=== PATIENT | female | born 1970 | race Hispanic/Latino ===

== ENCOUNTER 2017-01-24 08:39 | Emergency (ER) | payer MEDICAID ==
[2017-01-24 08:46] VITALS: BP 154/86; PULSE 77; TEMP 97; O2SAT 98
[2017-01-24 08:47] VITALS: BMI 33.2
--- NOTE | 2017-01-24 09:00 | ED PDOC ---
HPI: General Adult Time Seen by Provider: 01/24/17 08:57 Chief Complaint (Provider): rule out lice History Per: Patient History/Exam Limitations: no limitations Additional Complaint(s): 46yo female comes to the ED to rule out lice. Patient states she found lice in her daughter's hair and has been treating it with shampoo. Daughter was cleared to return to school by the school RN however now mom feels her head is itchy. No other complaints. 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 Past Medical History Reviewed: Historical Data, Nursing Documentation, Vital Signs Vital Signs: Last Vital Signs Temp 97 F L 01/24/17 08:46 Pulse 77 01/24/17 08:46 Resp BP 154/86 H 01/24/17 08:46 Pulse Ox 98 01/24/17 09:08 - Medical History PMH: Arthritis, Asthma, HTN (self controlled) - Family History Family History: States: CAD, Diabetes - Living Arrangements Living Arrangements: With Family - Social History Drugs: Denies - Home Medications Home Medications: Ambulatory Orders Medication Instructions Recorded Pip Butox/Pyrethrins/Permeth [Rid 1 each TOP ONCE #1 kit 01/24/17 Complete Lice Kit] - Allergies Allergies/Adverse Reactions: Allergies Allergy/AdvReac Type Severity Reaction Status Date / Time avocado Allergy SWELLING Verified 01/24/17 09:02 tomato Allergy SWELLING Verified 01/24/17 09:02 chocolate Allergy RASH Uncoded 01/24/17 09:02 Review of Systems Skin: Positive for: Other (itching) Physical Exam - Reviewed Nursing Documentation Reviewed: Yes Vital Signs Reviewed: Yes - Physical Exam Appears: Positive for: Well, Non-toxic, No Acute Distress Head Exam: Positive for: ATRAUMATIC, NORMAL INSPECTION (+no active bugs. +areas of excoriation and dry skin on scalp. +no lice seen. +no eggs seen. ), NORMOCEPHALIC Skin: Positive for: Warm, Dry - ECG O2 Sat by Pulse Oximetry: 98 (RA) Pulse Ox Interpretation: Normal Medical Decision Making Medical Decision Makin Patient cleared to return to work. Instructed to wash all pillows, sheets and bedding with hot water and detergent. Recommend repeat shampoo treatments for patient and daughter in one week. Disposition - Clinical Impression Clinical Impression: Exposure to head lice - Disposition Disposition: Routine/Home Disposition Time: 09:08 Condition: GOOD Additional Instructions: You are cleared to return to work. There are no signs of lice or eggs in your hair. Do lice treatment due to close exposure. Follow-up with PMD within 2 days. Return to ED if condition worsens. Prescriptions: Pip Butox/Pyrethrins/Permeth [Rid Complete Lice Kit] 1 each TOP ONCE #1 kit Instructions: Head lice in Children (ED) Forms: [facility] ED School/Work Excuse Additional Comments - Additional Comments Additional Comments: Scribe Attestation: Documented by Stevenson Villar acting as a scribe for Angélica James MD. Scribe Attestation: All medical record entries made by the Scribe were at my direction and personally dictated by me. I have reviewed the chart and agree that the record accurately reflects my personal performance of the history, physical exam, medical decision making, and the department course for this patient. I have also personally directed, reviewed, and agree with the discharge instructions and disposition.
== END 2017-01-24 09:29 | disposition home or self-care (01) ==
LOC: H.ER 08:39
DX: B85.0 Pediculosis due to Pediculus humanus capitis (principal); I10 Essential (primary) hypertension

== ENCOUNTER 2017-07-07 15:28 | Emergency (ER) | payer MEDICAID ==
[2017-07-07 15:28] VITALS: BMI 33.2
[2017-07-07 15:33] VITALS: BP 152/89; PULSE 80; RESP 16; TEMP 98.6; O2SAT 99
--- NOTE | 2017-07-07 15:52 | ED PDOC ---
Lower Extremity Pain/Injury Time Seen by Provider: 07/07/17 15:35 Chief Complaint (Nursing): Hip Pain Chief Complaint (Provider): Hip Pain History Per: Patient History/Exam Limitations: no limitations Onset/Duration Of Symptoms: Hrs (prior to arrival ) Additional Complaint(s): Ayla Gomez is a 47 year old female with a past medical history of sciatica and arthritis localized to her back presenting to the ED for an evaluation of left hip pain worsening with pressure. The patient reports taking 2 tablets of Aleve every morning for her sciatica, but has not taken any today. She has taken Excedrin, for her headache, and Pamprin, for her cramps this morning. PMD: [facility] Past Medical History Reviewed: Historical Data, Nursing Documentation, Vital Signs Vital Signs: Last Vital Signs Temp 98.6 F 07/07/17 15:31 Pulse 80 07/07/17 15:31 Resp 16 07/07/17 15:31 BP 152/89 H 07/07/17 15:31 Pulse Ox 99 07/07/17 15:31 - Medical History PMH: Arthritis, Asthma, HTN (self controlled) Other PMH: sciatica - Family History Family History: States: CAD, Diabetes - Home Medications Home Medications: Ambulatory Orders Medication Instructions Recorded Pip Butox/Pyrethrins/Permeth [Rid 1 each TOP ONCE #1 kit 01/24/17 Complete Lice Kit] Cyclobenzaprine [Cyclobenzaprine 10 mg PO Q8H PRN #12 tab 07/07/17 HCl] - Allergies Allergies/Adverse Reactions: Allergies Allergy/AdvReac Type Severity Reaction Status Date / Time avocado Allergy SWELLING Verified 07/07/17 15:31 tomato Allergy SWELLING Verified 07/07/17 15:31 chocolate Allergy RASH Uncoded 07/07/17 15:31 Review of Systems ROS Statement: Except As Marked, All Systems Reviewed And Found Negative Musculoskeletal: Positive for: Leg Pain (left hip pain) Physical Exam - Reviewed Nursing Documentation Reviewed: Yes Vital Signs Reviewed: Yes - Physical Exam Appears: Positive for: Non-toxic, No Acute Distress Head Exam: Positive for: ATRAUMATIC, NORMOCEPHALIC Skin: Positive for: Normal Color Eye Exam: Positive for: Normal appearance ENT: Positive for: Normal ENT Inspection Neck: Positive for: Normal, Painless ROM Cardiovascular/Chest: Positive for: Regular Rate, Rhythm Respiratory: Positive for: CNT, Normal Breath Sounds Back: Positive for: Normal Inspection, Other (positive left straight leg raise ) Extremity: Positive for: Normal ROM. Negative for: Deformity Neurologic/Psych: Positive for: Alert, Oriented - ECG O2 Sat by Pulse Oximetry: 99 (RA) Pulse Ox Interpretation: Normal Medical Decision Making Medical Decision Making: Time: 15:35 Impression: Exacerbation of sciatica Plan: * Flexeril 10 mg PO * Tylenol 975 mg PO Medication cut in half because she did not want to take the whole thing and be "sleepy". Pt states she does not want anything that could make her drowsy because she has to take care of her children this evening and there is no one to help. Scribe Attestation: Documented by Talia Sales, acting as a scribe for Zuri Ortez PA-C. Provider Scribe Attestation: All medical record entries made by the Scribe were at my direction and personally dictated by me. I have reviewed the chart and agree that the record accurately reflects my personal performance of the history, physical exam, medical decision making, and the department course for this patient. I have also personally directed, reviewed, and agree with the discharge instructions and disposition. Disposition - Clinical Impression Clinical Impression: Sciatica - Patient ED Disposition Is Patient to be Admitted: No Counseled Patient/Family Regarding: Diagnosis, Need For Followup, Rx Given - Disposition Disposition: Routine/Home Disposition Time: 16:31 Condition: GOOD Prescriptions: Cyclobenzaprine [Cyclobenzaprine HCl] 10 mg PO Q8H PRN #12 tab PRN Reason: Muscle Spasm Instructions: Sciatica (ED) Forms: [email or web address] (Latvian)
== END 2017-07-07 16:48 | disposition home or self-care (01) ==
LOC: H.ER 15:28
DX: M54.32 Sciatica, left side (principal); I10 Essential (primary) hypertension; J45.909 Unspecified asthma, uncomplicated

== ENCOUNTER 2018-01-14 08:33 | Emergency (ER) | payer MEDICAID ==
[2018-01-14 08:34] VITALS: BMI 33.2
[2018-01-14 08:43] VITALS: BP 124/65; PULSE 98; RESP 20; TEMP 98; O2SAT 98
--- NOTE | 2018-01-14 09:50 | ED PDOC ---
HPI: CCC, URI, Sore Throat Time Seen by Provider: 01/14/18 08:58 Chief Complaint (Nursing): ENT Problem History Per: Patient History/Exam Limitations: no limitations Onset/Duration Of Symptoms: Days (2), Gradual Current Symptoms Are (Timing): Still Present Associated Symptoms: Sore Throat, Cough. denies: Fever, Chills, Sputum, Neck Pain, Myalgias, Nasal Congestion, Nausea, Vomiting, Diarrhea Ear Symptoms: Right: Ear Pain Severity: Mild Additional History Per: Patient Additional Complaint(s): pt. into ER c/o lt. ear pain and throat pain since yesterday. states pain is worse when swallowing. denies any drainage from ear, denies any fever. pt. also c/o lt. arm pain since . denies any injury or trauma. states she took aleve with no relief, no cp or sob, does repetitive motion as a beverage server. Past Medical History Reviewed: Historical Data, Nursing Documentation, Vital Signs Vital Signs: Last Vital Signs Temp 98.0 F 01/14/18 08:39 Pulse 98 H 01/14/18 08:39 Resp 20 01/14/18 08:39 BP 124/65 01/14/18 08:39 Pulse Ox 98 01/14/18 09:51 - Medical History PMH: Arthritis, Asthma, HTN (self controlled) - Family History Family History: States: CAD, Diabetes - Living Arrangements Living Arrangements: With Family - Social History Current smoker - smoking cessation education provided: No - Home Medications Home Medications: Ambulatory Orders Medication Instructions Recorded Pip Butox/Pyrethrins/Permeth [Rid 1 each TOP ONCE #1 kit 01/24/17 Complete Lice Kit] Cyclobenzaprine [Cyclobenzaprine 10 mg PO Q8H PRN #12 tab 07/07/17 HCl] Azithromycin [Z-Joel] 250 mg PO DAILY #6 tab 01/14/18 Naproxen 500 mg PO BID PRN #20 tablet 01/14/18 - Allergies Allergies/Adverse Reactions: Allergies Allergy/AdvReac Type Severity Reaction Status Date / Time avocado Allergy SWELLING Verified 01/14/18 08:39 tomato Allergy SWELLING Verified 01/14/18 08:39 chocolate Allergy RASH Uncoded 07/07/17 15:31 Review of Systems ROS Statement: Except As Marked, All Systems Reviewed And Found Negative Constitutional: Negative for: Fever, Chills Eyes: Negative for: Vision Change ENT: Positive for: Ear Pain (left), Throat Pain. Negative for: Nose Pain, Nose Discharge, Mouth Swelling, Throat Swelling Cardiovascular: Negative for: Chest Pain, Palpitations Respiratory: Negative for: Cough, Shortness of Breath Gastrointestinal: Negative for: Nausea, Vomiting, Abdominal Pain Musculoskeletal: Negative for: Neck Pain Neurological: Negative for: Weakness, Numbness Physical Exam - Reviewed Nursing Documentation Reviewed: Yes Vital Signs Reviewed: Yes - Physical Exam Appears: Positive for: Well Head Exam: Positive for: ATRAUMATIC, NORMAL INSPECTION, NORMOCEPHALIC Eye Exam: Positive for: Normal appearance, EOMI, PERRL ENT: Positive for: Pharynx Is (clear,mmm), TM Is/Are (nml bl), Pharyngeal Erythema. Negative for: Tonsillar Exudate, Tonsillar Swelling Neck: Positive for: Normal, Painless ROM, Supple. Negative for: Decreased ROM, Limited ROM, Trachea Midline Cardiovascular/Chest: Positive for: Regular Rate, Rhythm, Chest Non Tender. Negative for: Edema, Gallop, Murmur, Bradycardia, Tachycardia Respiratory: Positive for: Normal Breath Sounds. Negative for: Decreased Breath Sounds, Accessory Muscle Use, Crackles, Rales, Rhonchi, Stridor, Wheezing , Respiratory Distress Pulses-Radial (L): 2+ Pulses-Radial (R): 2+ Gastrointestinal/Abdominal: Positive for: Normal Exam, Bowel Sounds, Soft. Negative for: Tenderness Back: Positive for: Normal Inspection. Negative for: L CVA Tenderness, R CVA Tenderness Extremity: Positive for: Normal ROM. Negative for: Tenderness, Pedal Edema Neurologic/Psych: Positive for: Alert, note taker II-XII, Oriented. Negative for: Motor/Sensory Deficits - Laboratory Results Result Diagrams: 01/14/18 10:20 01/14/18 10:20 - ECG ECG: Positive for: Interpreted By Vt ECG Rhythm: Positive for: Normal QRS, Normal ST Segment, Sinus Rhythm (81). Negative for: ST/T Changes Interpretation Of Abn EKG: no evidence of ischemia O2 Sat by Pulse Oximetry: 98 Pulse Ox Interpretation: Normal - Radiology X-Ray: Interpreted by Vt X-Ray Interpretation: No Acute Disease - Other Rad No standard instances X-Ray: Interpreted by Vt X-Ray Interpretation: L shoulder xray no fx or dislocation no sts - Progress ED Course And Treament: advise zpack and naproxen for pain. all of pt's questions were answered and pt agree's with plan. Re-evaluation Time: 11:23 Condition: Improved Disposition - Clinical Impression Clinical Impression: Pharyngitis, Shoulder injury - Patient ED Disposition Is Patient to be Admitted: No Counseled Patient/Family Regarding: Studies Performed, Diagnosis, Need For Followup, Rx Given - Disposition Referrals: [facility] [Outside] (2 to 3 days) Disposition: Routine/Home Disposition Time: 11:00 Condition: GOOD Prescriptions: Azithromycin [Z-Ojel] 250 mg PO DAILY #6 tab Naproxen 500 mg PO BID PRN #20 tablet PRN Reason: Pain, Mild (1-3) Instructions: Sore Throat, Adult (DC), Shoulder Sprain Forms: [employer] ([place] Islander), [facility] ED School/Work Excuse
[2018-01-14 10:55] LABS: BASO # 0.1 K/uL (0.0-0.2); EOS # 0.5 K/uL (0.0-0.7); EOS % 5.5 % (0.0-4.0); HEMOGLOBIN 12.3 g/dL (12.0-16.0); LYMPH # 1.9 K/uL (1.0-4.3); LYMPH % 21.6 % (20.0-40.0); MEAN CELL VOLUME 83.4 fl (81.0-99.0); MEAN CORPUSCULAR HEMOGLOBIN 27.9 pg (27.0-31.0); MEAN CORPUSCULAR HGB CONC 33.4 g/dL (33.0-37.0); MONO # 0.8 K/uL (0.0-0.8); MONO % 9.1 % (0.0-10.0); NEUT # 5.4 K/uL (1.8-7.0); NEUT % 62.8 % (50.0-75.0); RBC 4.4 Mil/uL (3.80-5.20); RED CELL DISTRIBUTION WIDTH 14.8 % (11.5-14.5); WHITE BLOOD COUNT 8.6 K/uL (4.8-10.8)
[2018-01-14 10:58] LABS: BLOOD UREA NITROGEN 12 mg/dl (7-17); CALCIUM 9.6 mg/dL (8.4-10.2); GFR AFRICAN-AMERICAN > 60; GFR NON-AFRICAN AMERICAN > 60
--- NOTE | 2018-01-14 11:37 | RAD ---
HISTORY: COMPARISON: 07/08/2012 TECHNIQUE: Chest PA and lateral FINDINGS: LINES AND TUBES: None. LUNG AND PLEURA: The lungs are well inflated and clear. HEART AND MEDIASTINUM: The heart is not enlarged. The hilar and mediastinal contours are within normal limits. SKELETAL STRUCTURES: The bony structures are within normal limits for the patient's age. VISUALIZED UPPER ABDOMEN: Normal. OTHER FINDINGS: None. IMPRESSION: No active pulmonary disease.
--- NOTE | 2018-01-14 11:39 | RAD ---
PROCEDURE: Radiographs of the Left Shoulder HISTORY: Pain COMPARISON: 07/30/2012. FINDINGS: BONES: Bone alignment and mineralization are normal. There is no acute displaced fracture or bone destruction. JOINTS: Normal. Glenohumeral and acromioclavicular joints preserved. SOFT TISSUES: Normal. OTHER FINDINGS: None. IMPRESSION: No acute fracture or dislocation.
--- NOTE | 2018-01-15 11:36 | CARD ---
APPROVED REPORT EKG Measurement Heart [id number] MI [id number] <Conclusion> Normal sinus rhythm Normal ECG
== END 2018-01-14 12:06 | disposition home or self-care (01) ==
LOC: H.ER 08:33
DX: J02.9 Acute pharyngitis, unspecified (principal); M25.512 Pain in left shoulder; I10 Essential (primary) hypertension; J45.909 Unspecified asthma, uncomplicated; Z82.49 Family history of ischemic heart disease and other diseases of the circulatory system

== ENCOUNTER 2018-05-12 18:42 | Emergency (ER) | payer MEDICAID ==
[2018-05-12 18:42] VITALS: BMI 33.2
[2018-05-12 18:52] VITALS: PULSE 75
--- NOTE | 2018-05-12 19:34 | ED PDOC ---
Lower Extremity Pain/Injury Time Seen by Provider: 05/12/18 19:28 Chief Complaint (Nursing): Lower Extremity Problem/Injury Chief Complaint (Provider): Lower Extremity Problem/Injury History Per: Patient History/Exam Limitations: no limitations Onset/Duration Of Symptoms: Days (x3) Current Symptoms Are (Timing): Still Present Additional Complaint(s): 47 y/o female presents to the ED complaining of right leg pain, onset three days ago. Patient states pain radiates from the groin shooting down the left leg. Patient reports a history of back pain in the past. Patient has intermittently taken 2 tablets of Aleve for symptom relief. Patient reports of taking flexeril in the past but states it makes her sleepy and does not want to take any sedating medications while she is taking care of her kids. PMD: [facility] Past Medical History Reviewed: Historical Data, Nursing Documentation, Vital Signs Vital Signs: Last Vital Signs Temp 98.1 F 05/12/18 18:47 Pulse 75 05/12/18 18:47 Resp 18 05/12/18 18:47 BP Pulse Ox 100 05/12/18 18:47 - Medical History PMH: Arthritis, Asthma, HTN (self controlled) - Surgical History Surgical History: No Surg Hx - Family History Family History: States: CAD, Diabetes - Home Medications Home Medications: Ambulatory Orders Medication Instructions Recorded Pip Butox/Pyrethrins/Permeth [Rid 1 each TOP ONCE #1 kit 01/24/17 Complete Lice Kit] Cyclobenzaprine [Cyclobenzaprine 10 mg PO Q8H PRN #12 tab 07/07/17 HCl] Azithromycin [Z-Joel] 250 mg PO DAILY #6 tab 01/14/18 Naproxen 500 mg PO BID PRN #20 tablet 01/14/18 Acetaminophen [Acetaminophen Extra 2 tab PO Q6 PRN #24 tablet 05/12/18 Strength] Naproxen 375 mg PO Q8 PRN #21 tablet 05/12/18 - Allergies Allergies/Adverse Reactions: Allergies Allergy/AdvReac Type Severity Reaction Status Date / Time avocado Allergy SWELLING Verified 01/14/18 08:39 tomato Allergy SWELLING Verified 01/14/18 08:39 chocolate Allergy RASH Uncoded 07/07/17 15:31 Review of Systems ROS Statement: Except As Marked, All Systems Reviewed And Found Negative Musculoskeletal: Positive for: Leg Pain (right) Physical Exam - Reviewed Nursing Documentation Reviewed: Yes - Physical Exam Appears: Positive for: Non-toxic, No Acute Distress Head Exam: Positive for: ATRAUMATIC, NORMAL INSPECTION Skin: Positive for: Normal Color, Warm Eye Exam: Positive for: Normal appearance ENT: Positive for: Normal ENT Inspection Neck: Positive for: Normal, Painless ROM Cardiovascular/Chest: Negative for: Bradycardia, Tachycardia Respiratory: Negative for: Accessory Muscle Use, Respiratory Distress Back: Positive for: Normal Inspection, Other (Mild paralumbar and right gluteal tenderness. ) Extremity: Positive for: Normal ROM, Other (No sciatica raise). Negative for: Deformity Neurologic/Psych: Positive for: Alert, Oriented. Negative for: Motor/Sensory Deficits - ECG O2 Sat by Pulse Oximetry: 100 (RA) Pulse Ox Interpretation: Normal Medical Decision Making Medical Decision Making: Time: 1927 Plan: -- Toradol 30 mg IM Scribe Attestation: Documented by Ta Carver, acting as a scribe for Donna Back PA-C. Provider Scribe Attestation: All medical record entries made by the Scribe were at my direction and personally dictated by me. I have reviewed the chart and agree that the record accurately reflects my personal performance of the history, physical exam, medical decision making, and the department course for this patient. I have also personally directed, reviewed, and agree with the discharge instructions and disposition. Disposition - Clinical Impression Clinical Impression: Sciatica - Patient ED Disposition Is Patient to be Admitted: No - Disposition Referrals: [facility] [Outside] Disposition: Routine/Home Disposition Time: 20:00 Condition: IMPROVED Prescriptions: Acetaminophen [Acetaminophen Extra Strength] 2 tab PO Q6 PRN #24 tablet PRN Reason: Pain, Moderate (4-7) Naproxen 375 mg PO Q8 PRN #21 tablet PRN Reason: Pain, Moderate (4-7) Instructions: Sciatica (DC) Forms: [employer] (Divehi), [facility] ED School/Work Excuse
[2018-05-12 20:22] VITALS: BP 131/77; RESP 15; TEMP 98
[2018-05-14 15:37] VITALS: O2SAT 100
== END 2018-05-12 20:21 | disposition home or self-care (01) ==
LOC: H.ER 18:42
DX: M54.31 Sciatica, right side (principal)
CPT/HCPCS: 81025; 96372; 99283; J1885

== ENCOUNTER 2018-08-08 17:53 | Emergency (ER) | payer MEDICAID ==
[2018-08-08 17:53] VITALS: BMI 33.2
[2018-08-08 18:12] VITALS: BP 131/81; PULSE 81; RESP 16; TEMP 97.7; O2SAT 100
[2018-08-08] MEDS ORDERED: Lidocaine 5% Patch TD STA (18:42)
[2018-08-08] MEDS ORDERED: Lidocaine 5% Patch TD ONE (18:52)
--- NOTE | 2018-08-08 19:11 | ED PDOC ---
Lower Extremity Pain/Injury Time Seen by Provider: 08/08/18 18:16 Chief Complaint (Nursing): Lower Extremity Problem/Injury Chief Complaint (Provider): Lower Extremity Problem/Injury History Per: Patient History/Exam Limitations: no limitations Onset/Duration Of Symptoms: Days (3 months) Current Symptoms Are (Timing): Still Present Additional Complaint(s): Christie Hernández is a 48 year old female with a past medical history of hypertension, asthma, and arthritis who is presenting to the ED for evaluation of atraumatic right hip pain travelling down right knee, onset 3 months ago. Patient states that she has been taking Tylenol and Alieve without relief and admits to a history of sciatica usually in the left leg. She denies any trauma, abdominal pain, dysuria, incontinence, nausea, vomiting, or back pain. PMD: [facility] Past Medical History Reviewed: Historical Data, Nursing Documentation, Vital Signs Vital Signs: Last Vital Signs Temp 97.7 F 08/08/18 18:07 Pulse 81 08/08/18 18:07 Resp 16 08/08/18 18:07 BP 131/81 08/08/18 18:07 Pulse Ox 100 08/08/18 18:07 - Medical History PMH: Arthritis, Asthma, HTN (self controlled) - Surgical History Surgical History: No Surg Hx - Family History Family History: States: CAD, Diabetes - Social History Current smoker - smoking cessation education provided: No Alcohol: None Drugs: Denies - Home Medications Home Medications: Ambulatory Orders Medication Instructions Recorded Pip Butox/Pyrethrins/Permeth [Rid 1 each TOP ONCE #1 kit 01/24/17 Complete Lice Kit] Cyclobenzaprine [Cyclobenzaprine 10 mg PO Q8H PRN #12 tab 07/07/17 HCl] Azithromycin [Z-Joel] 250 mg PO DAILY #6 tab 01/14/18 Naproxen 500 mg PO BID PRN #20 tablet 01/14/18 Acetaminophen [Acetaminophen Extra 2 tab PO Q6 PRN #24 tablet 05/12/18 Strength] Naproxen 375 mg PO Q8 PRN #21 tablet 05/12/18 Meloxicam [Mobic] 1 - 2 tab PO DAILY PRN #12 tab 08/08/18 - Allergies Allergies/Adverse Reactions: Allergies Allergy/AdvReac Type Severity Reaction Status Date / Time avocado Allergy SWELLING Verified 01/14/18 08:39 tomato Allergy SWELLING Verified 01/14/18 08:39 chocolate Allergy RASH Uncoded 07/07/17 15:31 Review of Systems ROS Statement: Except As Marked, All Systems Reviewed And Found Negative Gastrointestinal: Negative for: Nausea, Vomiting, Abdominal Pain Genitourinary Female: Negative for: Dysuria, Incontinence Musculoskeletal: Positive for: Leg Pain (knee pain), Other (hip pain). Negative for: Back Pain Physical Exam - Reviewed Nursing Documentation Reviewed: Yes Vital Signs Reviewed: Yes - Physical Exam Appears: Positive for: Non-toxic, In Acute Distress (mild painful) Head Exam: Positive for: ATRAUMATIC, NORMAL INSPECTION, NORMOCEPHALIC Skin: Positive for: Normal Color, Warm, DRY Pulses-Dorsalis Pedis (L): 2+ Pulses-Dorsalis Pedis (R): 2+ Gastrointestinal/Abdominal: Positive for: Normal Exam, Soft. Negative for: Tenderness Back: Positive for: Normal Inspection, Other (right hip: mild terness, no swelling or deformity). Negative for: L CVA Tenderness, R CVA Tenderness, Vertebral Tenderness Extremity: Positive for: Normal ROM. Negative for: Deformity, Swelling Neurologic/Psych: Positive for: Alert, Oriented. Negative for: Motor/Sensory Deficits - ECG O2 Sat by Pulse Oximetry: 100 (RA) Pulse Ox Interpretation: Normal - Radiology X-Ray: Interpreted by Me (R hip/pelvic x-ray) X-Ray Interpretation: Other (small calcific tendinitis; no fx) Medical Decision Making Medical Decision Making: Time: 18:42 Plan: --ED Urine --Lidocaine --Toradol 30 mg IM --Hip x-ray Scribe Attestation: Documented by Zhanna Cassidy, acting as a scribe for Venu Alvarez PA-C. Provider Scribe Attestation: All medical record entries made by the Scribe were at my direction and personally dictated by me. I have reviewed the chart and agree that the record accurately reflects my personal performance of the history, physical exam, medical decision making, and the department course for this patient. I have also personally directed, reviewed, and agree with the discharge instructions and disposition. Disposition - Clinical Impression Clinical Impression: Hip pain - Patient ED Disposition Is Patient to be Admitted: No - Disposition Referrals: Nito Bal MD [Medical Doctor] - Disposition: Routine/Home Disposition Time: 20:16 Condition: STABLE Additional Instructions: FOLLOW UP WITH ORTHOPEDIST FOR FURTHER EVALUATION CHRISTIE HERNÁNDEZ, thank you for letting us take care of you today. Your provider was Fahad Matthews MD and you were treated for RT LEG PAIN. The emergency medical care you received today was directed at your acute symptoms. If you were prescribed any medication, please fill it and take as directed. It may take several days for your symptoms to resolve. Return to the Emergency Department if your symptoms worsen, do not improve, or if you have any other problems. Please contact your doctor or call one of the physicians/clinics you have been referred to that are listed on the Patient Visit Information form that is included in your discharge packet. Bring any paperwork you were given at discharge with you along with any medications you are taking to your follow up visit. Our treatment cannot replace ongoing medical care by a primary care provider outside of the emergency department. Thank you for allowing the [facility] team to be part of your care today. If you had an X-Ray or CT scan: A Radiologist will review the ED reading if any change in treatment is needed we will contact you. If you had a blood, urine, or wound culture: It will take several days for the results, if any change in treatment is needed we will contact you. If you had an STI test: It will take 48 hours for the results. Please call after 1 week if you have not heard back. Prescriptions: Meloxicam [Mobic] 1 - 2 tab PO DAILY PRN #12 tab PRN Reason: Pain Instructions: Hip Pain (DC) Forms: [employer] (Kittitian), [facility] ED School/Work Excuse Print Language: LAO
--- NOTE | 2018-08-09 08:50 | RAD ---
PROCEDURE: Right Hip Radiographs. HISTORY: pain COMPARISON: None. FINDINGS: BONES: No demonstrated fracture. JOINTS: Normal. SOFT TISSUES: Normal. OTHER FINDINGS: None. IMPRESSION: No demonstrated fracture or dislocation.
== END 2018-08-08 21:03 | disposition home or self-care (01) ==
LOC: H.ER 17:53
DX: M25.551 Pain in right hip (principal)
CPT/HCPCS: 73502; 81025; 96372; 99282; J1885